=== PATIENT | male | born 1985 | race African-American/Black ===

== ENCOUNTER 2017-03-06 06:34 | Day surgery (SDC) | payer OTHER ==
[2017-03-05 14:20] VITALS: BMI 31.7
[2017-03-06] MEDS ORDERED: LIDOCAINE HCL 1%, 10 MG/ML (20ML VIAL) ONE (09:27)
[2017-03-06] MEDS ORDERED: BUPIVACAINE HCL/PF 0.5% (5MG/ML) 10 ML VIAL ONE ×2 (09:28)
[2017-03-06] MEDS ORDERED: PROPOFOL 20 ML ONE (09:33)
[2017-03-06] MEDS ORDERED: MIDAZOLAM HCL 2 MG/2 ML SINGLE DOSE VIAL ONE (09:33)
[2017-03-06] MEDS ORDERED: ceFAZolin SODIUM 1 GM VIAL ONE (09:40)
[2017-03-06] MEDS ORDERED: BUPIVACAINE HCL/PF 0.5% (5MG/ML) 10 ML VIAL IJ ONE (09:47)
[2017-03-06] MEDS ORDERED: LIDOCAINE HCL 1%, 10 MG/ML (50 mL VIAL) IJ ONE (09:47)
[2017-03-06] MEDS ORDERED: DEXAMETHASONE SOD PHOSPHATE 4 MG/1 ML VIAL ONE (10:09)
[2017-03-06] MEDS ORDERED: ONDANSETRON 4 MG/2 ML VIAL ONE (10:09)
[2017-03-06] MEDS ORDERED: PROMETHAZINE HCL 25 MG/1 ML VIAL IVPUSH PRN (10:45)
[2017-03-06] MEDS ORDERED: oxyCODONE HCL 5 MG TABLET PO PRN (10:45)
[2017-03-06] MEDS ORDERED: LACTATED RINGERS SOLUTION 1,000 ML IV SCH (10:45)
[2017-03-06] MEDS ORDERED: ALBUTEROL SO4 0.083% IH SOL 2.5 MG/3 ML VIAL.NEB. NEB ONE (11:38)
[2017-03-06] MEDS ORDERED: oxyCODONE HCL 5 MG TABLET PO ONE (12:50)
[2017-03-06] MEDS ORDERED: oxyCODONE HCL 5 MG TABLET ONE (12:53)
[2017-03-06 14:39] VITALS: BP 131/78; PULSE 70; TEMP 97.4
--- NOTE | 2017-03-07 10:20 | OP ---
DATE OF OPERATION: 03/06/2017 PREOPERATIVE DIAGNOSIS: Large periumbilical hernia. POSTOPERATIVE DIAGNOSIS: Large periumbilical hernia. PROCEDURE: Exploration, resection of the hernia sac, and repair of the hernia with composite mesh. SURGEON: Faiza Duarn MD ANESTHESIA: Initially local followed by general. The patient was brought to the operating room. Intravenous antibiotic was given. Abdomen was prepped and draped and a circum-umbilical incision was made and the incision was taken down through subcutaneous tissue and there was a large hernia which was protruding and it was dissected. The hernia sac was removed from the peritoneal attachment and the sac was excised. The abdominal contents were placed back into the abdominal cavity. The peritoneum was felt and there was no attachment to the anterior wall of the peritoneum at the abdominal wall and so a composite mesh with Dexon and Stephenson-Dayron Bard was used. All the Dexon mesh was attached to the fascia with 0 Prolene, and the midline was closed with 0 Vicryl, subcutaneous tissue with subcuticular, and a pressure dressing was applied. A binder was applied. The patient went to the recovery room in stable condition. FAIZA DURAN M.D. [id number]
--- NOTE | 2017-03-08 13:15 | PATH ---
Surgical Pathology Report Patient Name: LORENZO SALDIVAR [facility]. Rec. #: [id number] /Age/Gender: 1985 (Age: 31) / M Account: [id number] Location: [facility] AMBUL[facility] Taken: 03/06/2017 Received: 03/06/2017 Reported: 03/08/2017 Physicians: Faiza Duran M.D. Specimen(s) Received HERNIA SAC Clinical History Umbilical hernia Final Diagnosis SOFT TISSUE, UMBILICAL, EXCISION: HERNIA SAC. Electronically Signed Alexandr Blunt M.D. Gross Description Received in formalin labeled "hernia sac," is a 1.8 x 1.3 x 1.1 cm tiwari brown, irregular portion of fibromembranous tissue with attached fat, consistent with a hernia sac. Plant Protection Superintendent sections are submitted in one cassette. 03/07/201703/07/2017
== END 2017-03-06 14:30 | disposition home or self-care (01) ==
LOC: FASU 06:34
PROVIDERS: ATTEND Surgery Vascular Surgery
PROC: 0WUF0JZ Supplement Abdominal Wall with Synthetic Substitute, Open Approach (ICD-10-PCS; principal; 2017-03-06 09:38)
DX: K42.9 Umbilical hernia without obstruction or gangrene (principal)
CPT/HCPCS: 88302-TC; 94760

== ENCOUNTER 2022-01-09 12:03 | Emergency (ER) | payer BC, OTHER ==
[2022-01-09 12:42] VITALS: BMI 33.1
[2022-01-09] MEDS ORDERED: ACETAMINOPHEN 500 MG TABLET (FP) PO ONE (12:42)
[2022-01-09] MEDS ORDERED: SODIUM CHLORIDE 0.9% 500 ML INFUS.BAG IV ONE ×2 (13:59→15:59)
[2022-01-09] MEDS: ALBUTEROL SO4 2.5/IPRATROPIUM 0.5 INH SOL 3 ML VIAL.NEB. NEB SCH ×3 (14:09→15:10)
[2022-01-09 15:00] LABS: HEMATOCRIT 38.7 % (35.4-49); HEMOGLOBIN 12.9 GM/dL (11.7-16.9); MCH 29.4 pg (25.7-33.7); MCHC 33.3 g/dl (32.0-35.9); MEAN CELL VOLUME 88.2 fl (80-96); MEAN PLT VOLUME 9.1 fl (7.5-11.1); PLATELET COUNT 104 10^3/uL (134-434); RBC 4.38 M/mm3 (4.00-5.60); RDW 13.5 % (11.9-15.9); WHITE BLOOD COUNT 6.1 K/mm3 (4.0-10.0)
[2022-01-09 15:09] LABS: CALCIUM 8.8 mg/dL (8.5-10.1)
[2022-01-09] MEDS ORDERED: POTASSIUM CHLORIDE TABS 20 MEQ TABLET.ER (FP) PO ONE ×2 (15:09→15:41)
[2022-01-09 15:10] LABS: ALBUMIN 3.8 g/dl (3.4-5.0); BLOOD UREA NITROGEN 15.2 mg/dL (7-18)
[2022-01-09 15:13] LABS: CREATININE 1.5 mg/dL (0.55-1.3)
[2022-01-09 15:14] LABS: BILIRUBIN,TOTAL 0.5 mg/dL (0.2-1); TOT PROT 6.9 g/dl (6.4-8.2)
[2022-01-09 16:03] VITALS: TEMP 99.7
[2022-01-09] MEDS ORDERED: BEBTELOVIMAB (EUA) 175 MG/2 ML VIAL IVPUSH ONE (17:28)
[2022-01-09 19:17] VITALS: RESP 18
[2022-01-09 19:18] VITALS: BP 138/78; PULSE 87
== END 2022-01-09 20:02 | disposition home or self-care (01) ==
LOC: JER 12:03
PROC: 3E0F7GC Introduction of Other Therapeutic Substance into Respiratory Tract, Via Natural or Artificial Opening (ICD-10-PCS; principal; 2022-01-09)
PROC: 3E03329 Introduction of Other Anti-infective into Peripheral Vein, Percutaneous Approach (ICD-10-PCS; 2022-01-09)
DX: U07.1 COVID-19 (principal)
CPT/HCPCS: 36415; 71045-TC-FY; 80053; 84484; 85027; 93005; 93010; 94640; 96374; 99284-25; C9803-CS; M0222; Q0222; U0003; U0005

== ENCOUNTER 2022-08-03 06:13 | Emergency (ER) | payer BC ==
[2022-08-03 06:48] VITALS: BP 132/93; PULSE 72; RESP 18; TEMP 99; BMI 34.9
== END 2022-08-03 08:53 | disposition home or self-care (01) ==
LOC: JERFT 06:13 → JER 06:13 → JERFT 08:53
DX: U07.1 COVID-19 (principal); R05.1 Acute cough
CPT/HCPCS: 0241U-QW; 99283-25